=== PATIENT | male | born 1960 | race Caucasian/White ===

== ENCOUNTER 2024-11-15 09:17 | Inpatient (IN) ==
[2024-11-15] MEDS ORDERED: IOPAMIDOL 100 ML BOTTLE IV ONE (09:18)
[2024-11-15] MEDS: ONDANSETRON 4 MG/2 ML VIAL IV ONE (09:56)
[2024-11-15 10:24] LABS: Basophils # (Auto) 0.02 K/mcL (0.00-0.30); Basophils % (Auto) 0.1 % (0.0-2.0); Eosinophils # (Auto) 0.14 K/mcL (0.00-0.70); Eosinophils % (Auto) 1.0 % (0.0-7.0); Hematocrit 50.6 % (40.1-51.0); Hemoglobin 16.7 g/dL (13.7-17.5); Lymphocytes # (Auto) 1.46 K/mcL (1.50-4.80); Lymphocytes % (Auto) 10.9 % (15.5-49.0); Mean Corpuscular HGB Conc 33.0 g/dL (31.0-36.0); Monocytes # (Auto) 1.39 K/mcL (0.10-0.90); Monocytes % (Auto) 10.4 % (1.0-12.0); Neutrophils % (Auto) 76.3 % (38.0-78.0); Platelet Count 284 K/mcL (140-440); RBC 5.83 M/mcL (4.63-6.08); WBC 13.4 K/mcL (4.5-11.0)
[2024-11-15 10:46] LABS: ALT/SGPT 28 U/L (<40); AST/SGOT 18 U/L (<40); Albumin 4.1 gm/dL (3.2-5.2); Albumin/Globulin Ratio 1.4 (1.0-2.3); Alkaline Phosphatase 66 U/L (39-117); Anion Gap 16.0 (8.0-16.0); Bilirubin,Total 0.4 mg/dL (0.1-1.0); Blood Urea Nitrogen 19 mg/dL (8-23); Calcium 9.7 mg/dL (8.6-10.4); Carbon Dioxide 21 mmol/L (22-30); Chloride 102 mmol/L (96-108); Globulin 2.9 gm/dL (2.2-3.7); Glucose 153 mg/dL (70-105); Potassium 4.2 mmol/L (3.3-5.1); Sodium 139 mmol/L (133-145)
[2024-11-15] MEDS: cefTRIAXone 2 GM in DEXTROSE 5% IN WATER 50 ML IV ONE (11:15)
[2024-11-15 11:31] LABS: Bilirubin,Urine Negative (Negative); Color,Urine Yellow; Glucose,Urine (UA) 500 mg/dL (Negative); Ketones,Urine Trace mg/dL (Negative); Leukocyte Esterase,Urine Negative /uL (Negative); PH,Urine 5.5 (5.0-9.0); Protein,Urine Negative (Negative); Specific Gravity,Urine <= 1.005 (1.000-1.035); Urobilinogen,Urine Normal
[2024-11-15] MEDS: metroNIDAZOLE 500 MG/100 ML BAG IV ONE (12:09)
[2024-11-15] MEDS ORDERED: DEXTROSE 31 GM ORAL.SUSP PO PRN (16:38)
[2024-11-15] MEDS ORDERED: DEXTROSE 50% 50 ML VIAL IV PRN (16:38)
[2024-11-15] MEDS ORDERED: metroNIDAZOLE 500 MG/100 ML BAG IV SCH (16:45)
[2024-11-15] MEDS ORDERED: CIPROFLOXACIN 400 MG/200 ML BAG IV SCH (16:45)
[2024-11-15 17:06] LABS: Estimated Average Glucose(eAG) 160 mg/dL; Hemoglobin A1C 7.2 % Hgb (4.0-6.0)
[2024-11-15] MEDS: FLEETS ADULT 1 DOSE ENEMA PR ONE (17:23)
[2024-11-15] MEDS: FLEETS ADULT 1 DOSE ENEMA ONE (17:32)
[2024-11-15] MEDS: INSULIN LISPRO 1 UNIT/0.01 ML UNIT SQ SCH (17:33)
[2024-11-15] MEDS: CIPROFLOXACIN 400 MG/200 ML BAG IV SCH (17:52)
[2024-11-15] MEDS: metroNIDAZOLE 500 MG/100 ML BAG IV SCH (18:18)
[2024-11-15] MEDS: HYDROmorphone 0.5 MG/0.5 ML SYRINGE IV PRN (20:16)
[2024-11-15] MEDS: ACETAMINOPHEN 325 MG TABLET PO PRN (20:22)
[2024-11-15] MEDS: ACETAMINOPHEN 1,000 MG/100 ML BAG IV SCH (22:07)
[2024-11-16] MEDS ORDERED: LIDOCAINE 2% PF 5 ML VIAL ONE (08:43)
[2024-11-16] MEDS ORDERED: ROCURONIUM 10 MG/ML ML IV ONE (08:43)
[2024-11-16] MEDS ORDERED: PROPOFOL 200 MG/20 ML VIAL IV ONE (08:43)
[2024-11-16] MEDS ORDERED: HYDROmorphone 0.5 MG/0.5 ML SYRINGE ONE ×2 (08:43→11:51)
[2024-11-16] MEDS ORDERED: ROPIVACAINE HCL/PF 30 ML VIAL IJ ONE (09:38)
[2024-11-16] MEDS ORDERED: METOCLOPRAMIDE 10 MG/2 ML VIAL ONE (09:38)
[2024-11-16] MEDS ORDERED: DEXAMETHASONE 10 MG/ML VIAL ONE (09:38)
[2024-11-16] MEDS ORDERED: ONDANSETRON 4 MG/2 ML VIAL ONE (09:38)
[2024-11-16] MEDS ORDERED: DEXMEDETOMIDINE HCL 200 MCG/2 ML VIAL ONE (10:43)
[2024-11-16] MEDS ORDERED: MAGNESIUM SULFATE 2 GM/50 ML BAG IV ONE (10:47)
[2024-11-16] MEDS ORDERED: IPRATROPIUM/ALBUTEROL 3 ML AMPUL.NEB NEB PRN (11:11)
[2024-11-16] MEDS ORDERED: HYDROmorphone 0.5 MG/0.5 ML SYRINGE IV PRN (11:11)
[2024-11-16] MEDS ORDERED: SUGAMMADEX SODIUM 200 MG/2 ML VIAL IV ONE (11:15)
[2024-11-16] MEDS: METHOCARBAMOL 1,000 MG/10 ML VIAL IV PRN (12:42)
[2024-11-16] MEDS: fentaNYL 100 MCG/2 ML VIAL IV PRN (12:57)
[2024-11-16] MEDS: 0.9 % SODIUM CHLORIDE 1,000 ML IV SCH (15:29)
[2024-11-16] MEDS: METOCLOPRAMIDE 10 MG/2 ML VIAL IV SCH (17:27)
[2024-11-17 06:18] LABS: Basophils # (Auto) 0.01 K/mcL (0.00-0.30); Basophils % (Auto) 0.1 % (0.0-2.0); Eosinophils # (Auto) 0.05 K/mcL (0.00-0.70); Eosinophils % (Auto) 0.4 % (0.0-7.0); Hematocrit 50.6 % (40.1-51.0); Hemoglobin 16.2 g/dL (13.7-17.5); Lymphocytes # (Auto) 1.45 K/mcL (1.50-4.80); Lymphocytes % (Auto) 12.0 % (15.5-49.0); Mean Corpuscular HGB Conc 32.0 g/dL (31.0-36.0); Monocytes # (Auto) 1.69 K/mcL (0.10-0.90); Monocytes % (Auto) 14.0 % (1.0-12.0); Neutrophils % (Auto) 72.1 % (38.0-78.0); Platelet Count 312 K/mcL (140-440); RBC 5.72 M/mcL (4.63-6.08); WBC 12.0 K/mcL (4.5-11.0)
[2024-11-17 07:09] LABS: ALT/SGPT 29 U/L (<40); AST/SGOT 20 U/L (<40); Albumin 3.4 gm/dL (3.2-5.2); Albumin/Globulin Ratio 1.1 (1.0-2.3); Alkaline Phosphatase 57 U/L (39-117); Anion Gap 18.0 (8.0-16.0); Bilirubin,Direct 0.3 mg/dL (<0.3); Bilirubin,Total 0.5 mg/dL (0.1-1.0); Blood Urea Nitrogen 14 mg/dL (8-23); Calcium 8.8 mg/dL (8.6-10.4); Carbon Dioxide 20 mmol/L (22-30); Chloride 99 mmol/L (96-108); Globulin 3.1 gm/dL (2.2-3.7); Glucose 150 mg/dL (70-105); Phosphorous 3.2 mg/dL (2.5-4.5); Potassium 4.7 mmol/L (3.3-5.1); Sodium 137 mmol/L (133-145); Triglycerides 92 mg/dL (<150); Uric Acid 7.5 mg/dL (2.5-8.0)
[2024-11-18 06:20] LABS: Basophils # (Auto) 0.04 K/mcL (0.00-0.30); Basophils % (Auto) 0.4 % (0.0-2.0); Eosinophils # (Auto) 0.28 K/mcL (0.00-0.70); Eosinophils % (Auto) 2.6 % (0.0-7.0); Hematocrit 48.2 % (40.1-51.0); Hemoglobin 15.2 g/dL (13.7-17.5); Lymphocytes # (Auto) 1.44 K/mcL (1.50-4.80); Lymphocytes % (Auto) 13.3 % (15.5-49.0); Mean Corpuscular HGB Conc 31.5 g/dL (31.0-36.0); Monocytes # (Auto) 1.29 K/mcL (0.10-0.90); Monocytes % (Auto) 11.9 % (1.0-12.0); Neutrophils % (Auto) 70.5 % (38.0-78.0); Platelet Count 317 K/mcL (140-440); RBC 5.34 M/mcL (4.63-6.08); WBC 10.8 K/mcL (4.5-11.0)
[2024-11-18 07:54] LABS: ALT/SGPT 20 U/L (<40); AST/SGOT 18 U/L (<40); Albumin 2.9 gm/dL (3.2-5.2); Albumin/Globulin Ratio 0.9 (1.0-2.3); Alkaline Phosphatase 51 U/L (39-117); Anion Gap 19.0 (8.0-16.0); Bilirubin,Direct < 0.2 mg/dL (0-0.3); Bilirubin,Total 0.4 mg/dL (0.1-1.0); Blood Urea Nitrogen 12 mg/dL (8-23); Calcium 8.9 mg/dL (8.6-10.4); Carbon Dioxide 20 mmol/L (22-30); Chloride 100 mmol/L (96-108); Globulin 3.2 gm/dL (2.2-3.7); Glucose 156 mg/dL (70-105); Phosphorous 2.4 mg/dL (2.5-4.5); Potassium 4.3 mmol/L (3.3-5.1); Sodium 139 mmol/L (133-145); Triglycerides 100 mg/dL (<150); Uric Acid 8.1 mg/dL (2.5-8.0)
[2024-11-18] MEDS: ONDANSETRON 4 MG/2 ML VIAL IV PRN (10:38)
[2024-11-18] MEDS: PYRIDOSTIGMINE BROMIDE 10 MG/2 ML AMPUL IV SCH (17:11)
[2024-11-19] MEDS: metroNIDAZOLE 500 MG/100 ML BAG IV SCH (11:49)
[2024-11-19] MEDS: CIPROFLOXACIN 400 MG/200 ML BAG IV SCH (20:28)
[2024-11-21 06:40] LABS: Basophils # (Auto) 0.03 K/mcL (0.00-0.30); Basophils % (Auto) 0.3 % (0.0-2.0); Eosinophils # (Auto) 0.37 K/mcL (0.00-0.70); Eosinophils % (Auto) 4.3 % (0.0-7.0); Hematocrit 41.8 % (40.1-51.0); Hemoglobin 13.4 g/dL (13.7-17.5); Lymphocytes # (Auto) 1.46 K/mcL (1.50-4.80); Lymphocytes % (Auto) 17.0 % (15.5-49.0); Mean Corpuscular HGB Conc 32.1 g/dL (31.0-36.0); Monocytes # (Auto) 0.81 K/mcL (0.10-0.90); Monocytes % (Auto) 9.4 % (1.0-12.0); Neutrophils % (Auto) 67.8 % (38.0-78.0); Platelet Count 320 K/mcL (140-440); RBC 4.71 M/mcL (4.63-6.08); WBC 8.6 K/mcL (4.5-11.0)
[2024-11-21 07:34] LABS: ALT/SGPT 21 U/L (<40); AST/SGOT 26 U/L (<40); Albumin 2.7 gm/dL (3.2-5.2); Albumin/Globulin Ratio 1.1 (1.0-2.3); Alkaline Phosphatase 49 U/L (39-117); Anion Gap 16.0 (8.0-16.0); Bilirubin,Direct 0.2 mg/dL (<0.3); Bilirubin,Total 0.4 mg/dL (0.1-1.0); Blood Urea Nitrogen 10 mg/dL (8-23); Calcium 8.3 mg/dL (8.6-10.4); Carbon Dioxide 21 mmol/L (22-30); Chloride 101 mmol/L (96-108); Globulin 2.5 gm/dL (2.2-3.7); Glucose 95 mg/dL (70-105); Phosphorous 3.3 mg/dL (2.5-4.5); Potassium 3.3 mmol/L (3.3-5.1); Sodium 138 mmol/L (133-145); Triglycerides 147 mg/dL (<150); Uric Acid 7.1 mg/dL (2.5-8.0)
[2024-11-22 06:15] LABS: Basophils # (Auto) 0.03 K/mcL (0.00-0.30); Basophils % (Auto) 0.3 % (0.0-2.0); Eosinophils # (Auto) 0.39 K/mcL (0.00-0.70); Eosinophils % (Auto) 4.1 % (0.0-7.0); Hematocrit 42.7 % (40.1-51.0); Hemoglobin 14.2 g/dL (13.7-17.5); Lymphocytes # (Auto) 1.45 K/mcL (1.50-4.80); Lymphocytes % (Auto) 15.4 % (15.5-49.0); Mean Corpuscular HGB Conc 33.3 g/dL (31.0-36.0); Monocytes # (Auto) 0.99 K/mcL (0.10-0.90); Monocytes % (Auto) 10.5 % (1.0-12.0); Neutrophils % (Auto) 68.4 % (38.0-78.0); Platelet Count 329 K/mcL (140-440); RBC 4.93 M/mcL (4.63-6.08); WBC 9.4 K/mcL (4.5-11.0)
[2024-11-22 06:34] LABS: ALT/SGPT 25 U/L (<40); AST/SGOT 30 U/L (<40); Albumin 2.7 gm/dL (3.2-5.2); Albumin/Globulin Ratio 1.0 (1.0-2.3); Alkaline Phosphatase 55 U/L (39-117); Anion Gap 12.0 (8.0-16.0); Bilirubin,Direct < 0.2 mg/dL (0-0.3); Bilirubin,Total 0.4 mg/dL (0.1-1.0); Blood Urea Nitrogen 5 mg/dL (8-23); Calcium 8.3 mg/dL (8.6-10.4); Carbon Dioxide 21 mmol/L (22-30); Chloride 103 mmol/L (96-108); Globulin 2.7 gm/dL (2.2-3.7); Glucose 125 mg/dL (70-105); Phosphorous 3.4 mg/dL (2.5-4.5); Potassium 3.3 mmol/L (3.3-5.1); Sodium 136 mmol/L (133-145); Triglycerides 159 mg/dL (<150); Uric Acid 5.7 mg/dL (2.5-8.0)
[2024-11-22] MEDS: MAGNESIUM OXIDE 400 MG TABLET PO SCH (20:56)
[2024-11-23] MEDS: POTASSIUM CHLORIDE 20 MEQ TABLET PO SCH (09:11)
[2024-11-25 07:16] VITALS: O2SAT 96
[2024-11-25 16:08] VITALS: TEMP 97.6
== END 2024-11-25 16:30 | disposition home health service (06) | DRG 329 ==
LOC: MEDSUR 09:17 → ED 09:17 → MEDSUR 18:40
PROVIDERS: ADMIT Family Medicine Adult Medicine; ATTEND Family Medicine Adult Medicine

== ENCOUNTER 2025-03-05 05:11 | Inpatient (IN) ==
[2025-02-27 12:28] LABS: INR 1.0 (0.9-1.1); Prothrombin Time 14.0 sec (11.9-14.5)
[2025-02-27 13:08] LABS: Basophils # (Auto) 0.03 K/mcL (0.00-0.30); Basophils % (Auto) 0.4 % (0.0-2.0); Eosinophils # (Auto) 0.11 K/mcL (0.00-0.70); Eosinophils % (Auto) 1.4 % (0.0-7.0); Hematocrit 52.2 % (40.1-51.0); Hemoglobin 16.5 g/dL (13.7-17.5); Lymphocytes # (Auto) 1.95 K/mcL (1.50-4.80); Lymphocytes % (Auto) 24.5 % (15.5-49.0); Mean Corpuscular HGB Conc 31.6 g/dL (31.0-36.0); Monocytes # (Auto) 0.75 K/mcL (0.10-0.90); Monocytes % (Auto) 9.4 % (1.0-12.0); Neutrophils % (Auto) 63.9 % (38.0-78.0); Platelet Count 261 K/mcL (140-440); RBC 6.06 M/mcL (4.63-6.08); WBC 8.0 K/mcL (4.5-11.0)
[2025-02-27 13:22] LABS: ALT/SGPT 43 U/L (<40); AST/SGOT 33 U/L (<40); Albumin 4.5 gm/dL (3.2-5.2); Albumin/Globulin Ratio 1.5 (1.0-2.3); Alkaline Phosphatase 55 U/L (39-117); Anion Gap 14.0 (8.0-16.0); Bilirubin,Total 0.5 mg/dL (0.1-1.0); Blood Urea Nitrogen 22 mg/dL (8-23); Calcium 10.1 mg/dL (8.6-10.4); Carbon Dioxide 25 mmol/L (22-30); Chloride 102 mmol/L (96-108); Globulin 3.1 gm/dL (2.2-3.7); Glucose 120 mg/dL (70-105); Potassium 4.5 mmol/L (3.3-5.1); Sodium 141 mmol/L (133-145)
[2025-02-27 13:26] LABS: Estimated Average Glucose(eAG) 174 mg/dL; Hemoglobin A1C 7.7 % Hgb (4.0-6.0)
[2025-03-05] MEDS ORDERED: fentaNYL 100 MCG/2 ML VIAL ONE ×3 (08:52→13:18)
[2025-03-05] MEDS ORDERED: SUGAMMADEX SODIUM 200 MG/2 ML VIAL IV ONE (08:53)
[2025-03-05] MEDS ORDERED: PROPOFOL 200 MG/20 ML VIAL IV ONE (08:53)
[2025-03-05] MEDS ORDERED: ONDANSETRON 4 MG/2 ML VIAL ONE (08:55)
[2025-03-05] MEDS ORDERED: LIDOCAINE 2% PF 5 ML VIAL ONE (08:55)
[2025-03-05] MEDS ORDERED: GLYCOPYRROLATE 0.2 MG/ML VIAL IV ONE (08:55)
[2025-03-05] MEDS ORDERED: DEXAMETHASONE 10 MG/ML VIAL ONE (08:55)
[2025-03-05] MEDS: CIPROFLOXACIN 400 MG/200 ML BAG IV SCH ×2 (09:06→21:47)
[2025-03-05] MEDS ORDERED: PHENYLephrine 1 MG/10 ML SYRINGE (ANEST) ONE ×2 (09:34→11:44)
[2025-03-05] MEDS: metroNIDAZOLE 500 MG/100 ML BAG IV SCH ×2 (09:38→15:19)
[2025-03-05] MEDS ORDERED: MAGNESIUM SULFATE 2 GM/50 ML BAG IV ONE (09:51)
[2025-03-05] MEDS ORDERED: FAMOTIDINE/PF 20 MG/2 ML VIAL IV ONE (10:11)
[2025-03-05] MEDS ORDERED: HYDROmorphone 0.5 MG/0.5 ML SYRINGE ONE ×2 (10:54→12:23)
[2025-03-05] MEDS: ALBUMIN HUMAN 12.5 GM/50 ML VIAL IV ONE (12:26)
[2025-03-05] MEDS ORDERED: IPRATROPIUM/ALBUTEROL 3 ML AMPUL.NEB NEB PRN (12:45)
[2025-03-05] MEDS ORDERED: HYDROmorphone 0.5 MG/0.5 ML SYRINGE IV PRN (12:45)
[2025-03-05] MEDS ORDERED: fentaNYL 100 MCG/2 ML VIAL IV PRN (12:45)
[2025-03-05] MEDS ORDERED: BENZOCAINE/MENTHOL 1 LOZENGE PO PRN (12:45)
[2025-03-05] MEDS ORDERED: ONDANSETRON 4 MG/2 ML VIAL IV PRN ×3 (12:45→13:37)
[2025-03-05] MEDS ORDERED: DEXMEDETOMIDINE HCL 200 MCG/2 ML VIAL ONE (13:01)
[2025-03-05] MEDS ORDERED: DEXTROSE 31 GM ORAL.SUSP PO PRN (13:39)
[2025-03-05] MEDS ORDERED: DEXTROSE 50% 50 ML VIAL IV PRN (13:39)
[2025-03-05] MEDS ORDERED: METOPROLOL TARTRATE 5 MG/5 ML VIAL IV PRN (13:39)
[2025-03-05] MEDS ORDERED: hydrALAZINE 20 MG/ML VIAL IV PRN (13:39)
[2025-03-05] MEDS: ACETAMINOPHEN 1,000 MG/100 ML BAG IV ONE (13:45)
[2025-03-05] MEDS: METHOCARBAMOL 1,000 MG/10 ML VIAL IV PRN (14:02)
[2025-03-05] MEDS: ACETAMINOPHEN 1,000 MG/100 ML BAG IV SCH (14:57)
[2025-03-05] MEDS: 0.9 % SODIUM CHLORIDE 1,000 ML IV SCH (15:19)
[2025-03-05] MEDS: 0.9 % SODIUM CHLORIDE 10 ML SYRINGE IV SCH (15:19)
[2025-03-05] MEDS: LACTATED RINGERS 1,000 ML IV SCH (15:21)
[2025-03-05] MEDS: HYDROmorphone 0.5 MG/0.5 ML SYRINGE IV PRN (15:46)
[2025-03-05] MEDS: INSULIN LISPRO 1 UNIT/0.01 ML UNIT SQ SCH ×2 (17:47→18:01)
[2025-03-05] MEDS: PANTOPRAZOLE 40 MG TABLET PO SCH (17:47)
[2025-03-05] MEDS: METOCLOPRAMIDE 10 MG/2 ML VIAL IV SCH (17:56)
[2025-03-05] MEDS: PANTOPRAZOLE 40 MG VIAL IV SCH (17:56)
[2025-03-05] MEDS: KETOROLAC 30 MG/ML VIAL IV SCH (20:24)
[2025-03-05] MEDS ORDERED: DOCUSATE SODIUM 100 MG CAPSULE PO SCH (21:00)
[2025-03-05] MEDS ORDERED: SENNOSIDES 1 TABLET PO SCH (21:00)
[2025-03-06] MEDS: KETOROLAC 30 MG/ML VIAL IV SCH (02:26)
[2025-03-06] MEDS: KETOROLAC 30 MG/ML VIAL ONE (02:29)
[2025-03-06 06:23] LABS: ALT/SGPT 25 U/L (<40); AST/SGOT 21 U/L (<40); Albumin 3.5 gm/dL (3.2-5.2); Albumin/Globulin Ratio 1.5 (1.0-2.3); Alkaline Phosphatase 42 U/L (39-117); Anion Gap 11.0 (8.0-16.0); Bilirubin,Direct 0.2 mg/dL (<0.3); Bilirubin,Total 0.5 mg/dL (0.1-1.0); Blood Urea Nitrogen 19 mg/dL (8-23); Calcium 8.0 mg/dL (8.6-10.4); Carbon Dioxide 21 mmol/L (22-30); Chloride 104 mmol/L (96-108); Globulin 2.3 gm/dL (2.2-3.7); Glucose 164 mg/dL (70-105); Phosphorous 4.6 mg/dL (2.5-4.5); Potassium 4.8 mmol/L (3.3-5.1); Sodium 136 mmol/L (133-145); Triglycerides 107 mg/dL (<150); Uric Acid 7.1 mg/dL (2.5-8.0)
[2025-03-06 08:25] LABS: Basophils # (Auto) 0.01 K/mcL (0.00-0.30); Basophils % (Auto) 0.1 % (0.0-2.0); Eosinophils # (Auto) 0.04 K/mcL (0.00-0.70); Eosinophils % (Auto) 0.4 % (0.0-7.0); Hematocrit 43.9 % (40.1-51.0); Hemoglobin 14.0 g/dL (13.7-17.5); Lymphocytes # (Auto) 1.26 K/mcL (1.50-4.80); Lymphocytes % (Auto) 14.0 % (15.5-49.0); Mean Corpuscular HGB Conc 31.9 g/dL (31.0-36.0); Monocytes # (Auto) 1.44 K/mcL (0.10-0.90); Monocytes % (Auto) 16.1 % (1.0-12.0); Neutrophils % (Auto) 69.2 % (38.0-78.0); Platelet Count 237 K/mcL (140-440); RBC 5.13 M/mcL (4.63-6.08); WBC 9.0 K/mcL (4.5-11.0)
[2025-03-07 06:17] LABS: ALT/SGPT 18 U/L (<40); AST/SGOT 19 U/L (<40); Albumin 3.1 gm/dL (3.2-5.2); Albumin/Globulin Ratio 1.3 (1.0-2.3); Alkaline Phosphatase 40 U/L (39-117); Anion Gap 10.0 (8.0-16.0); Bilirubin,Direct 0.3 mg/dL (<0.3); Bilirubin,Total 0.6 mg/dL (0.1-1.0); Blood Urea Nitrogen 16 mg/dL (8-23); Calcium 7.8 mg/dL (8.6-10.4); Carbon Dioxide 21 mmol/L (22-30); Chloride 106 mmol/L (96-108); Globulin 2.3 gm/dL (2.2-3.7); Glucose 133 mg/dL (70-105); Phosphorous 2.8 mg/dL (2.5-4.5); Potassium 3.8 mmol/L (3.3-5.1); Sodium 137 mmol/L (133-145); Triglycerides 112 mg/dL (<150); Uric Acid 7.6 mg/dL (2.5-8.0)
[2025-03-07 06:18] LABS: Basophils # (Auto) 0.04 K/mcL (0.00-0.30); Basophils % (Auto) 0.5 % (0.0-2.0); Eosinophils # (Auto) 0.35 K/mcL (0.00-0.70); Eosinophils % (Auto) 4.4 % (0.0-7.0); Hematocrit 40.0 % (40.1-51.0); Hemoglobin 12.5 g/dL (13.7-17.5); Lymphocytes # (Auto) 1.23 K/mcL (1.50-4.80); Lymphocytes % (Auto) 15.3 % (15.5-49.0); Mean Corpuscular HGB Conc 31.3 g/dL (31.0-36.0); Monocytes # (Auto) 1.30 K/mcL (0.10-0.90); Monocytes % (Auto) 16.2 % (1.0-12.0); Neutrophils % (Auto) 63.5 % (38.0-78.0); Platelet Count 208 K/mcL (140-440); RBC 4.57 M/mcL (4.63-6.08); WBC 8.0 K/mcL (4.5-11.0)
[2025-03-07] MEDS: diphenhydrAMINE 50 MG/ML VIAL IV PRN (21:26)
[2025-03-08 05:56] LABS: Basophils # (Auto) 0.03 K/mcL (0.00-0.30); Basophils % (Auto) 0.5 % (0.0-2.0); Eosinophils # (Auto) 0.37 K/mcL (0.00-0.70); Eosinophils % (Auto) 5.6 % (0.0-7.0); Hematocrit 39.9 % (40.1-51.0); Hemoglobin 12.1 g/dL (13.7-17.5); Lymphocytes # (Auto) 1.17 K/mcL (1.50-4.80); Lymphocytes % (Auto) 17.6 % (15.5-49.0); Mean Corpuscular HGB Conc 30.3 g/dL (31.0-36.0); Monocytes # (Auto) 0.83 K/mcL (0.10-0.90); Monocytes % (Auto) 12.5 % (1.0-12.0); Neutrophils % (Auto) 63.5 % (38.0-78.0); Platelet Count 206 K/mcL (140-440); RBC 4.45 M/mcL (4.63-6.08); WBC 6.6 K/mcL (4.5-11.0)
[2025-03-08 06:26] LABS: ALT/SGPT 15 U/L (<40); AST/SGOT 16 U/L (<40); Albumin 2.9 gm/dL (3.2-5.2); Albumin/Globulin Ratio 1.2 (1.0-2.3); Alkaline Phosphatase 42 U/L (39-117); Anion Gap 10.0 (8.0-16.0); Bilirubin,Direct < 0.2 mg/dL (0-0.3); Bilirubin,Total 0.3 mg/dL (0.1-1.0); Blood Urea Nitrogen 11 mg/dL (8-23); Calcium 7.9 mg/dL (8.6-10.4); Carbon Dioxide 21 mmol/L (22-30); Chloride 108 mmol/L (96-108); Globulin 2.5 gm/dL (2.2-3.7); Glucose 120 mg/dL (70-105); Phosphorous 1.7 mg/dL (2.5-4.5); Potassium 3.9 mmol/L (3.3-5.1); Sodium 139 mmol/L (133-145); Triglycerides 120 mg/dL (<150); Uric Acid 7.3 mg/dL (2.5-8.0)
[2025-03-08] MEDS: DEXTROSE 5%-1/2NS W/20MEQ KCL 1,000 ML IV SCH (10:49)
[2025-03-09 05:47] LABS: Basophils # (Auto) 0.03 K/mcL (0.00-0.30); Basophils % (Auto) 0.5 % (0.0-2.0); Eosinophils # (Auto) 0.42 K/mcL (0.00-0.70); Eosinophils % (Auto) 6.4 % (0.0-7.0); Hematocrit 39.8 % (40.1-51.0); Hemoglobin 12.4 g/dL (13.7-17.5); Lymphocytes # (Auto) 0.93 K/mcL (1.50-4.80); Lymphocytes % (Auto) 14.2 % (15.5-49.0); Mean Corpuscular HGB Conc 31.2 g/dL (31.0-36.0); Monocytes # (Auto) 0.84 K/mcL (0.10-0.90); Monocytes % (Auto) 12.8 % (1.0-12.0); Neutrophils % (Auto) 65.8 % (38.0-78.0); Platelet Count 241 K/mcL (140-440); RBC 4.56 M/mcL (4.63-6.08); WBC 6.5 K/mcL (4.5-11.0)
[2025-03-09 06:09] LABS: ALT/SGPT 11 U/L (<40); AST/SGOT 14 U/L (<40); Albumin 3.1 gm/dL (3.2-5.2); Albumin/Globulin Ratio 1.3 (1.0-2.3); Alkaline Phosphatase 52 U/L (39-117); Anion Gap 11.0 (8.0-16.0); Bilirubin,Direct 0.3 mg/dL (<0.3); Bilirubin,Total 0.4 mg/dL (0.1-1.0); Blood Urea Nitrogen 9 mg/dL (8-23); Calcium 8.2 mg/dL (8.6-10.4); Carbon Dioxide 20 mmol/L (22-30); Chloride 108 mmol/L (96-108); Globulin 2.4 gm/dL (2.2-3.7); Glucose 140 mg/dL (70-105); Phosphorous 1.9 mg/dL (2.5-4.5); Potassium 3.6 mmol/L (3.3-5.1); Sodium 139 mmol/L (133-145); Triglycerides 141 mg/dL (<150); Uric Acid 7.4 mg/dL (2.5-8.0)
[2025-03-10 06:04] LABS: Basophils # (Auto) 0.03 K/mcL (0.00-0.30); Basophils % (Auto) 0.4 % (0.0-2.0); Eosinophils # (Auto) 0.41 K/mcL (0.00-0.70); Eosinophils % (Auto) 5.4 % (0.0-7.0); Hematocrit 40.2 % (40.1-51.0); Hemoglobin 12.9 g/dL (13.7-17.5); Lymphocytes # (Auto) 1.07 K/mcL (1.50-4.80); Lymphocytes % (Auto) 14.0 % (15.5-49.0); Mean Corpuscular HGB Conc 32.1 g/dL (31.0-36.0); Monocytes # (Auto) 0.94 K/mcL (0.10-0.90); Monocytes % (Auto) 12.3 % (1.0-12.0); Neutrophils % (Auto) 67.5 % (38.0-78.0); Platelet Count 271 K/mcL (140-440); RBC 4.65 M/mcL (4.63-6.08); WBC 7.7 K/mcL (4.5-11.0)
[2025-03-10 06:17] LABS: ALT/SGPT 15 U/L (<40); AST/SGOT 21 U/L (<40); Albumin 3.0 gm/dL (3.2-5.2); Albumin/Globulin Ratio 1.2 (1.0-2.3); Alkaline Phosphatase 45 U/L (39-117); Anion Gap 10.0 (8.0-16.0); Bilirubin,Direct < 0.2 mg/dL (0-0.3); Bilirubin,Total 0.3 mg/dL (0.1-1.0); Blood Urea Nitrogen 5 mg/dL (8-23); Calcium 8.4 mg/dL (8.6-10.4); Carbon Dioxide 21 mmol/L (22-30); Chloride 109 mmol/L (96-108); Globulin 2.5 gm/dL (2.2-3.7); Glucose 144 mg/dL (70-105); Phosphorous 2.0 mg/dL (2.5-4.5); Potassium 3.8 mmol/L (3.3-5.1); Sodium 140 mmol/L (133-145); Triglycerides 143 mg/dL (<150); Uric Acid 7.1 mg/dL (2.5-8.0)
[2025-03-10] MEDS: METOPROLOL SUCCINATE 25 MG TAB.XL.24H PO SCH (15:31)
[2025-03-10] MEDS ORDERED: DEXTROSE 31 GM ORAL.SUSP PO PRN (18:37)
[2025-03-10] MEDS ORDERED: DEXTROSE 50% 50 ML VIAL IV PRN (18:37)
[2025-03-10] MEDS: ZOLPIDEM 5 MG TABLET PO PRN (21:37)
[2025-03-10] MEDS: INSULIN LISPRO 1 UNIT/0.01 ML UNIT SQ SCH (21:54)
[2025-03-11 06:42] LABS: Basophils # (Auto) 0.05 K/mcL (0.00-0.30); Basophils % (Auto) 0.7 % (0.0-2.0); Eosinophils # (Auto) 0.42 K/mcL (0.00-0.70); Eosinophils % (Auto) 6.3 % (0.0-7.0); Hematocrit 40.6 % (40.1-51.0); Hemoglobin 12.9 g/dL (13.7-17.5); Lymphocytes # (Auto) 1.34 K/mcL (1.50-4.80); Lymphocytes % (Auto) 19.9 % (15.5-49.0); Mean Corpuscular HGB Conc 31.8 g/dL (31.0-36.0); Monocytes # (Auto) 1.00 K/mcL (0.10-0.90); Monocytes % (Auto) 14.9 % (1.0-12.0); Neutrophils % (Auto) 57.6 % (38.0-78.0); Platelet Count 309 K/mcL (140-440); RBC 4.75 M/mcL (4.63-6.08); WBC 6.7 K/mcL (4.5-11.0)
[2025-03-11 06:49] LABS: ALT/SGPT 17 U/L (<40); AST/SGOT 26 U/L (<40); Albumin 3.2 gm/dL (3.2-5.2); Albumin/Globulin Ratio 1.2 (1.0-2.3); Alkaline Phosphatase 53 U/L (39-117); Anion Gap 10.0 (8.0-16.0); Bilirubin,Direct 0.3 mg/dL (<0.3); Bilirubin,Total 0.3 mg/dL (0.1-1.0); Blood Urea Nitrogen 5 mg/dL (8-23); Calcium 8.6 mg/dL (8.6-10.4); Carbon Dioxide 22 mmol/L (22-30); Chloride 109 mmol/L (96-108); Globulin 2.6 gm/dL (2.2-3.7); Glucose 170 mg/dL (70-105); Phosphorous 2.5 mg/dL (2.5-4.5); Potassium 3.8 mmol/L (3.3-5.1); Sodium 141 mmol/L (133-145); Triglycerides 142 mg/dL (<150); Uric Acid 6.4 mg/dL (2.5-8.0)
[2025-03-12 18:35] VITALS: TEMP 97.7; O2SAT 96
== END 2025-03-12 19:20 | disposition home or self-care (01) | DRG 330 ==
LOC: MEDSUR 05:11 → EDSTATUS 08:30
PROVIDERS: ADMIT Family Medicine Adult Medicine; ATTEND Family Medicine Adult Medicine